=== PATIENT | male | born 1955 | race Caucasian/White ===

== ENCOUNTER 2018-10-19 07:40 | Day surgery (SDC) | payer OTHER, SELFPAY ==
--- NOTE | 2018-10-19 | PATH_ITS ---
[facility] Accession Number: [id number] . 01 Material submitted: . sigmoid colon - SIGMOID POLYP X2 . 02 Diagnosis: Biopsy, Sigmoid Colon Polyps: Tubular adenoma involving both biopsy fragments. [facility]/10/20/2018 . 02 Electronically signed: . Luis Fernando Arenas MD, Pathologist NPI- [id number] . 01 Gross description: . SIGMOID POLYP X2: Received in formalin are 2 fragment(s) of carey, soft tissue measuring 0.1 x 0.1 x 0.1 cm to 0.3 x 0.2 x 0.2 cm which is entirely submitted and submitted entirely in 1 cassette(s) /DMC /DMC . 02 Pathologist provided ICD-10: D12.5 . 02 CPT . 918959 Performed at: 01 [facility] [address] [address], [place], [place] [id number] MD Mike Martin MD Phone: [phone] [facility]formed [facility]: [facility] [address] [place], [place] [id number] MD Kat Quintero MD Phone: [phone]
[2018-10-19 08:07] VITALS: BP 136/87; PULSE 77; RESP 16; TEMP 36.3; O2SAT 5; BMI 25.4
[2018-10-19] MEDS: SODIUM CHLORIDE 0.9% 1,000 ML 200 ML IV (08:10)
--- NOTE | 2018-10-19 09:43 | PM.HP.1 ---
History of Present Illness Date Patient Seen: 10/19/18 Time Patient Seen: 09:43 Chief complaint: [id number] Narrative: 63-year-old man 10 years status post most recent screening colonoscopy without family or personal history of colon/rectal cancer or polyps. Generally feeling well without intestinal complaints Tolerated prep was Patient History Medical History (Updated 10/19/18 @ 09:44 by Percy Cheng MD) Myopia (Acute) Social History household members: spouse Family & Social History Social History: household members spouse Meds Home Medications Medication Instructions Recorded Confirmed Type FLUTICASONE 50MCG LINDSEY INH- 1 spray INTRANASAL BID #0 04/07/10 History (FLUTICASONE PROPIONATE) Loratadine (Claritin) 10 mg PO QDAY #0 04/07/10 History Allergies Allergy/AdvReac Type Severity Reaction Status Date / Time INGREDIENT: NKA - NO KNOWN Allergy Unknown Uncoded 07/06/17 13:00 ALLERGIES Review of Systems Constitutional Constitutional: Denies fever(s) Eyes Eyes: Denies bulging eyes ENT Ears, Nose, Mouth, and Throat: No lip swelling Cardiovascular Cardiovascular: Denies generalize swelling Respiratory Respiratory: Denies stridor Gastrointestinal Gastrointestinal: Denies coffee ground emesis Musculoskeletal Musculoskeletal: Denies loss of height Integumentary/Breasts Skin/Breast: Denies wounds Neurologic Neurologic: Denies abnormal speech and Denies confusion Psychiatric Psychiatric: Denies confusion Endocrine Endocrine: Denies deepening of the voice Hematologic/Lymphatic Hematologic/Lymphatic: Denies lymphadenopathy Allergic/Immunologic Allergic/Immunologic: Denies lip swelling Exam Vital Signs (past 8 hours): - 10/19/18 08:07 Temperature 97.4 F L Pulse Rate 77 Respiratory Rate 16 Blood Pressure 136/87 Pulse Oximetry 5 L Oxygen Delivery Method Room Air Const General: cooperative and healthy appearing Orientation: alert [facility] Head: normal to inspection Nose: nares normal Mouth: oral mucosae normal and lip normal Eyes Eyelids: eyelids normal Conjunctivae: conjunctivae normal Sclera: sclerae normal Neck Neck: supple and other (No thyromegally) Chest Chest: other (LCTAB , regular respiratory effort) Cardio Rhythm: regular rhythm Heart Sounds: S1 normal, S2 normal, no gallops, no murmurs and no rubs GI Other: Abdomen soft nontender nondistended Skin General: no rashes or lesions noted Neuro General: alert and awake Psych Appearance: grossly normal Affect: normal affect Assessment & Plan Assessment & Plan narrative: 63-year-old man here for screening colonoscopy 10 years status post last Risk and benefits of the procedure discussed. Risks including , perforation, hypoxia, missed lesion all discussed All questions answered Patient ready to proceed
--- NOTE | 2018-10-19 09:46 | P.HP_ITS ---
History of Present Illness Date Patient Seen: 10/19/18 Time Patient Seen: 09:43 Chief complaint: [id number] Narrative: 63-year-old man 10 years status post most recent screening colonoscopy without family or personal history of colon/rectal cancer or polyps. Generally feeling well without intestinal complaints Tolerated prep was Patient History Medical History (Updated 10/19/18 @ 09:44 by Percy Cheng MD) Myopia (Acute) Social History household members: spouse Family & Social History Social History: household members spouse Meds Home Medications Medication Instructions Recorded Confirmed Type FLUTICASONE 50MCG LINDSEY INH- 1 spray INTRANASAL BID #0 04/07/10 History (FLUTICASONE PROPIONATE) Loratadine (Claritin) 10 mg PO QDAY #0 04/07/10 History Allergies Allergy/AdvReac Type Severity Reaction Status Date / Time INGREDIENT: NKA - NO KNOWN Allergy Unknown Uncoded 07/06/17 13:00 ALLERGIES Review of Systems Constitutional Constitutional: Denies fever(s) Eyes Eyes: Denies bulging eyes ENT Ears, Nose, Mouth, and Throat: No lip swelling Cardiovascular Cardiovascular: Denies generalize swelling Respiratory Respiratory: Denies stridor Gastrointestinal Gastrointestinal: Denies coffee ground emesis Musculoskeletal Musculoskeletal: Denies loss of height Integumentary/Breasts Skin/Breast: Denies wounds Neurologic Neurologic: Denies abnormal speech and Denies confusion Psychiatric Psychiatric: Denies confusion Endocrine Endocrine: Denies deepening of the voice Hematologic/Lymphatic Hematologic/Lymphatic: Denies lymphadenopathy Allergic/Immunologic Allergic/Immunologic: Denies lip swelling Exam Vital Signs (past 8 hours): - 10/19/18 08:07 Temperature 97.4 F L Pulse Rate 77 Respiratory Rate 16 Blood Pressure 136/87 Pulse Oximetry 5 L Oxygen Delivery Method Room Air Const General: cooperative and healthy appearing Orientation: alert [facility] Head: normal to inspection Nose: nares normal Mouth: oral mucosae normal and lip normal Eyes Eyelids: eyelids normal Conjunctivae: conjunctivae normal Sclera: sclerae normal Neck Neck: supple and other (No thyromegally) Chest Chest: other (LCTAB , regular respiratory effort) Cardio Rhythm: regular rhythm Heart Sounds: S1 normal, S2 normal, no gallops, no murmurs and no rubs GI Other: Abdomen soft nontender nondistended Skin General: no rashes or lesions noted Neuro General: alert and awake Psych Appearance: grossly normal Affect: normal affect Assessment & Plan Assessment & Plan narrative: 63-year-old man here for screening colonoscopy 10 years status post last Risk and benefits of the procedure discussed. Risks including , perforation, hypoxia, missed lesion all discussed All questions answered Patient ready to proceed
--- NOTE | 2018-10-19 10:43 | PM.OP.ENDO ---
Operative Date/Time/Diagnoses Date of procedure: 10/19/18 Time of procedure: 10:43 Pre-op diagnosis: Colorectal cancer screening Post-op diagnosis: same Procedure & Clinicians Study performed: Colonoscopy complete Sigmoid polypectomy with cold biopsy forceps x1 Sigmoid polypectomy with hot snare x1 Same procedure as scheduled: Yes Indications: 63-year-old man presents 10 years status post previous screening colonoscopy Surgeon: Percy Cheng Procedure Notes SCOAP/Timeout: completed Procedure in detail: Patient was taken to the endoscopy suite, time-out was completed. Was sedated over the course of the entire procedure with 7 mg of midazolam and 200 micro g of fentanyl. A digital rectal exam was performed without abnormality. 160 cm colonoscope was advanced through the anus and navigated through the folds of the rectum and colon until the cecum reached. Cecum was identified via prominent ileocecal valve and a notable gross foot. There is no appendiceal orifice as the patient was status post appendectomy. We then slowly withdrew the scope visualizing the mucosa. At the level of the sigmoid colon there was a small pedunculated polyp which was removed via a Jumbo biopsy forcep. Moving several cm distally an additional polyp was small sessile but larger than the capacity of a biopsy forcep was identified -this was removed completely via hot snare. Curiously the polyp was still somewhat adherent to the coagulum where it had been removed and was difficult to dislodged in order to suction. Biopsy forcep was introduced through the working port and used to do dislodged this polyp. It was then suctioned without incident and collected via suction trap. Both specimens were sent to pathology together The remainder of the colon and the rectum was without lesions. Scope was retroflexed within the distal rectum without abnormality Prep was adequate Scope withdrawal time: 32 Sedation minutes: 50 Findings: polyp Specimen(s): other (Sigmoid polyp x2) Complications: none Impression: Sigmoid polyp x2, status post polypectomy Recommendations: Colonscopy in 5 years Plan for aftercare: PACU then home Follow up: as needed Disposition: PACU
[2018-10-19] MEDS: fentaNYL 250 MCG/5 ML INJ IV (10:46)
[2018-10-19 10:48] VITALS: BP 118/73; PULSE 59; RESP 16; TEMP 37.1; O2SAT 95
[2018-10-19] MEDS: MIDAZOLAM 5 MG/5 ML VIAL IV (10:49)
[2018-10-19] MEDS: GLUCAGON,HUMAN RECOMBINANT 1 MG/ML VIAL IV (10:50)
[2018-10-19 10:53] VITALS: BP 122/81; PULSE 67; RESP 14; O2SAT 96
[2018-10-19 11:02] VITALS: BP 125/85; PULSE 64; RESP 14; TEMP 36.7; O2SAT 97
[2018-10-19 11:41] VITALS: BP 107/69; PULSE 67; RESP 15; TEMP 36.1; O2SAT 98
== END 2018-10-19 11:44 | disposition home or self-care (01) ==
PROVIDERS: PCP Family Medicine; Visit Provider Surgery
PROC: 0DJD8ZZ Inspection of Lower Intestinal Tract, Via Natural or Artificial Opening Endoscopic (ICD-10-PCS; CPT 45378; principal; 2018-10-19 08:45)
DX: Z12.11 Encounter for screening for malignant neoplasm of colon (principal); D12.5 Benign neoplasm of sigmoid colon
CPT/HCPCS: 45385; 45380; 99152; 99153; J1610; J2250; J3010

== ENCOUNTER → 2020-04-25 11:17 | Outpatient (CLI) | payer MEDICARE, SELFPAY ==
[2020-04-25] MEDS: COVID-19 VACC #1, MRNA(MOD) 100 MCG/0.5 ML VIAL IM (11:23)
== END ==
PROVIDERS: PCP Family Medicine; Visit Provider Internal Medicine
DX: Z23 Encounter for immunization (principal)
CPT/HCPCS: 0011A; 91301

== ENCOUNTER → 2020-05-23 12:15 | Outpatient (CLI) | payer MEDICARE, SELFPAY ==
[2020-05-23] MEDS: COVID-19 VACC #2, MRNA(MOD) 100 MCG/0.5 ML VIAL IM (12:22)
== END ==
PROVIDERS: Visit Provider Internal Medicine
DX: Z23 Encounter for immunization (principal)
CPT/HCPCS: 0012A; 91301

== ENCOUNTER → 2022-03-09 07:12 | Outpatient (CLI) | payer MEDICARE, SELFPAY ==
--- NOTE | 2022-03-09 | DI.US.S_ITS ---
PROCEDURE: US ABDOMEN LIMITED / soft tissue ultrasound INDICATIONS: RIGHT SHOULDER BLADE LUMP TECHNIQUE: Real-time focused scanning was performed of the abdomen, with image documentation. COMPARISON: None. FINDINGS: At the patient indicated area of clinical concern, the soft tissues of the right upper medial back, an encapsulated avascular oblong lesion with fine linear striations is present. It measures 2.0 x 2.7 x 0.5 centimeters, and is 6 millimeters deep to the skin surface. IMPRESSION: A 2.7 cm mass is present in the soft tissues of the right upper back corresponding to the patient indicated area of concern. 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 Clinical follow-up is recommended and if the finding increases in size or the patient develops symptoms such as pain, a repeat examination or MRI could be obtained. Dictated by: Shawn Garcia M.D. on 03/09/2022 at 9:12 Approved by: Shawn Garcia M.D. on 03/09/2022 at 10:04
== END ==
PROVIDERS: PCP Family Medicine; Referring Provider Family Medicine; Visit Provider Family Medicine
DX: R22.2 Localized swelling, mass and lump, trunk (principal)
CPT/HCPCS: 76705

== ENCOUNTER → 2022-12-07 11:17 | Outpatient (CLI) | payer MEDICARE, SELFPAY ==
--- NOTE | 2022-12-07 11:21 | DI.RAD.S_ITS ---
PROCEDURE: XR FOOT RT MIN 3V INDICATIONS: punture wound of foot w/o foreign body, ongoing redness and pain TECHNIQUE: 3 views of the foot were acquired. COMPARISON: None. FINDINGS: Bones: No fractures or dislocations. No suspicious bony lesions. 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 Mild hallux valgus angulation with medial bunion formation. Soft tissues: No tibiotalar joint effusion. Achilles tendon appears normal. IMPRESSION: No acute osseous abnormality. No foreign bodies are identified. Dictated by: Ino Jimenez M.D. on 12/07/2022 at 13:36 Approved by: Ino Jimenez M.D. on 12/07/2022 at 13:37
== END ==
PROVIDERS: PCP Family Medicine; Referring Provider Registered Nurse; Visit Provider Registered Nurse
DX: S91.331A Puncture wound without foreign body, right foot, initial encounter (principal); X58.XXXA Exposure to other specified factors, initial encounter
CPT/HCPCS: 73630

== ENCOUNTER → 2022-12-15 17:11 | Outpatient (CLI) | payer MEDICARE, SELFPAY ==
--- NOTE | 2022-12-15 17:13 | DI.MRI.S_ITS ---
PROCEDURE: MR FOOT RT WO CON INDICATIONS: ONGOING PAIN AFTER PUNCTURE WOUND TECHNIQUE: Noncontrast sagittal T1 spin echo and T2 fast spin echo with fat saturation, long-axis T1 spin echo and STIR, short-axis T1 spin echo and T2 fast spin echo with fat saturation through the forefoot. COMPARISON: [facility], CR, XR FOOT RT MIN 3V, 12/07/2022, 11:26. FINDINGS: Image quality: Excellent. Bones and joints: Mild focal osseous edema is seen within the 5th metatarsal head with mild T1-weighted signal abnormality. No overlying cortical destruction or definite fracture line is seen. Osseous structures are otherwise normal in signal intensity. Mild degenerative changes are seen at the 1st metatarsophalangeal joint and the metatarsal sesamoid articulations. Hallux sesamoids are normally aligned. Soft tissues: Mild nonspecific soft tissue edema along the lateral and plantar soft tissues adjacent to the 5th metatarsal head. No well-defined fluid collection is seen. Mild adjacent intramuscular edema is noted. No collateral ligament or plantar plate tear is seen. The visualized plantar foot muscles otherwise demonstrate normal signal and bulk. Visualized flexor and extensor tendons appear intact, without tenosynovitis. The distal insertions of the peroneus brevis and longus tendons appear intact. The principal Lisfranc ligament appears intact. Sagittal images demonstrate no evidence for plantar plate tears. IMPRESSION: 1. Mild nonspecific osseous edema within the 5th metatarsal head. Findings may represent an osseous contusion or reactive edema, although mild osteomyelitis is not entirely excluded in the setting of a puncture wound. 2. Mild soft tissue edema surrounding the 5th metatarsal head is nonspecific and may be related to the prior wound, and infection is not excluded. No focal fluid collection or abscess is seen. on 12/17/2022 at 11:15 Approved by: Shawn Tiwari M.D. on 12/17/2022 at 11:15
== END ==
PROVIDERS: PCP Family Medicine; Referring Provider Registered Nurse; Visit Provider Registered Nurse
DX: S91.331A Puncture wound without foreign body, right foot, initial encounter (principal); X58.XXXA Exposure to other specified factors, initial encounter
CPT/HCPCS: 73718

== ENCOUNTER 2023-02-09 13:54 | Emergency (ER) | payer MEDICARE, SELFPAY ==
[2023-02-09] VITALS (10 sets, daily range): BP systolic 140–180; BP diastolic 68–91; PULSE 65–80; RESP 16–24; TEMP 36.7; O2SAT 96–99; BMI 26.2
--- NOTE | 2023-02-09 14:02 | ED_ITS ---
HPI - General Adult General Chief complaint: Neuro Symptoms/Deficit Stated complaint: TIA Time Seen by Provider: 02/09/23 13:57 Source: patient and other (Girlfriend) Mode of arrival: EMS Limitations: no limitations History of Present Illness HPI narrative: Patient is a 67-year-old male. He is relatively healthy. Does not take any medicines on a regular basis. His brought in by EMS for evaluation of concern of stroke/TIA. Approximately 3 hours prior to arrival in the emergency department patient had sexual intercourse. He states that afterwards he felt somewhat lightheaded. No headache. No chest pain. No shortness of breath. It somewhat difficult for him to explain exactly what happened during this time however per EMS reports it appears that his girlfriend states there was about a 30 minute episode where he had difficulty speaking and potentially even slurring some words. There was some report that maybe this happened last evening however the patient does not remember. Currently the patient states he just feels somewhat lightheaded but no other specific complaints. He denies chest pain, palpitations, shortness of breath, headache, vision changes, abdominal pain, nausea or vomiting. Related Data Home Medications Medication Instructions Recorded Confirmed FLUTICASONE 50MCG LINDSEY INH- 1 spray intranasal BID ##0 04/07/10 (FLUTICASONE PROPIONATE) Loratadine (Claritin) 10 mg PO QDAY ##0 04/07/10 Allergies Allergy/AdvReac Type Severity Reaction Status Date / Time INGREDIENT: NKA - NO KNOWN Allergy Unknown Uncoded 07/06/17 13:00 ALLERGIES Review of Systems Review of Systems ROS Unobtainable: All systems reviewed & are unremarkable except as noted in HPI and below Patient History Medical History Myopia Social History household members: spouse Smoking Status: Never smoker Exam Initial Vital Signs Initial Vital Signs: Vital Signs Temperature 98.1 F 02/09/23 14:16 Pulse Rate 75 02/09/23 14:16 Respiratory Rate 18 02/09/23 14:16 Blood Pressure 180/91 H 02/09/23 14:16 Pulse Oximetry 99 02/09/23 14:16 Oxygen Delivery Method Room Air 02/09/23 14:16 Const General: cooperative, comfortable and No ill appearing HENTN Head: normal to inspection and normocephalic Resp Effort & Inspection: normal respiratory effort Auscultation: clear to auscultation bilaterally Cardio Rate: regular rate Rhythm: regular rhythm Skin General: no rashes or lesions noted Neuro General: patient alert, patient awake, patient oriented x3 and moves all extremities Cognition: normal cognition Speech: speech normal Gait: normal gait Sensory Exam: no sensory deficits noted Extrem General: normal to inspection and capillary refill normal Scores NIH Stroke Scale Level of Conciousness: Alert, keenly responsive Ask month/age: Answers both questions correctly. Open/close eyes, close hand: Performs both tasks correctly Best gaze horizontal: Normal Visual pickard: No visual loss Facial palsy: Normal symetrical movement Left arm drift: No drift for full 10 sec Right arm drift: No drift for full 10 sec Left leg drift: No drift for full 5 sec Right leg drift: No drift for full 5 sec Limb ataxia: Absent Sensory on face/arms/legs: Normal, no sensory loss Best language: No aphasia, normal Dysarthria: Normal Extinction or inattention: No abnormality Total NIH Stroke scale score: 0 Course Orders Ordered: ED Orders 02/09/23 13:56 Complete Blood Count AUTO DIFF Stat Comprehensive Metabolic Panel Stat Ethanol (ETOH) Stat Lipase Stat 02/09/23 14:03 CT angio head and neck Stat CT head/brain wo con Stat EKG-12 Lead Stat 02/09/23 15:50 MR head/brain wo con Stat Discontinued Medications Diazepam (Diazepam 10 Mg/2 Ml Syringe) 2 mg IV NOW ONE Stop: 02/09/23 17:03 Last Admin: 02/09/23 17:14 Dose: 2 mg Documented By: YESI Vital Signs Vital signs: Vital Signs - 8 hr 02/09/23 14:16 02/09/23 14:47 02/09/23 14:48 Temperature 98.1 F Pulse Rate 75 71 73 Respiratory Rate 18 23 24 Blood Pressure 180/91 H Pulse Oximetry 99 97 97 Oxygen Delivery Method Room Air 02/09/23 14:48 02/09/23 14:55 02/09/23 14:55 Temperature Pulse Rate 75 Respiratory Rate 24 Blood Pressure 155/80 H 158/82 H Pulse Oximetry 97 Oxygen Delivery Method 02/09/23 15:00 02/09/23 15:00 02/09/23 15:15 Temperature Pulse Rate 71 70 Respiratory Rate 16 22 Blood Pressure 146/80 H Pulse Oximetry 98 97 Oxygen Delivery Method 02/09/23 15:15 02/09/23 15:45 02/09/23 16:15 Temperature Pulse Rate 69 76 Respiratory Rate 18 18 Blood Pressure 145/77 H 140/70 141/68 H Pulse Oximetry 98 98 Oxygen Delivery Method Room Air Room Air 02/09/23 16:45 02/09/23 17:34 Temperature Pulse Rate 80 65 Respiratory Rate 18 Blood Pressure 144/78 H Pulse Oximetry 98 96 Oxygen Delivery Method Medical Decision Making Lab Data Lab results reviewed: Yes I reviewed the patient's lab results. 02/09/23 13:56 02/09/23 13:56 Labs: Lab Results 02/09/23 Range/Units 13:56 WBC 6.6 (4.5-11.0) X10^3/uL RBC 5.30 (4.5-5.9) X10^6/uL Hgb 17.3 (13.5-17.5) g/dL Hct 49.2 (41-53) % MCV 92.7 (80-100) fL MCH 32.6 (26-34) PG MCHC 35.2 (30-36) % RDW 12.9 (11.6-14.8) % Plt Count 282 (150-400) X10^3/uL Neut % (Auto) 65.4 (50-75) % Lymph % (Auto) 21.7 L (25-40) % [place] % (Auto) 8.9 (3-14) % Eos % (Auto) 3.2 (2-4) % Baso % (Auto) 0.8 (0-2) % Neut # (Auto) 4300 (5003-5424) /uL Lymph # (Auto) 1400 (5318-2106) /uL [place] # (Auto) 600 (0-900) /uL Eos # (Auto) 200 (0-450) /uL Baso # (Auto) 100 (0-100) /uL Sodium 140 (137-145) mmol/L Potassium 4.0 (3.4-5.1) mmol/L Chloride 100 (98-107) mmol/L Carbon Dioxide 31 (22-32) mmol/L BUN 17 (9-20) mg/dL Creatinine 1.13 (0.66-1.25) mg/dL Estimated GFR > 60 (>60) mL/min BUN/Creatinine Ratio 15.0 (6-22) Glucose 108 (80-110) mg/dL Calcium 9.9 (8.4-10.2) mg/dL Total Bilirubin 1.1 (0.2-1.3) mg/dL AST 34 (17-59) IU/L ALT 35 (<50) IU/L Alkaline Phosphatase 58 (38-126) U/L Total Protein 8.4 H (6.3-8.2) g/dL Albumin 4.8 (3.5-5.0) g/dL Globulin 3.6 (1.7-4.1) g/dL Albumin/Globulin Ratio 1.3 (1.0-2.8) Lipase 138 (23-300) U/L Ethyl Alcohol < 10 ( - 10) mg/dL Urine Dip Bedside Urine Glucose Negative Bedside Urine Bilirubin - Negative Bedside Urine Ketone - Negative Urine Specific Beyer 1.015 Bedside Urine Occult Blood - Negative Bedside Urine pH 6.0 Bedside Urine Protein - Negative Bedside Urine Urobilinogen - Negative Bedside Urine Nitrite - Negative Bedside Urine Leukocytes - Negative Esterase Point of care testing: Urine Dip Bedside Urine Glucose Negative Bedside Urine Bilirubin - Negative Bedside Urine Ketone - Negative Urine Specific Beyer 1.015 Bedside Urine Occult Blood - Negative Bedside Urine pH 6.0 Bedside Urine Protein - Negative Bedside Urine Urobilinogen - Negative Bedside Urine Nitrite - Negative Bedside Urine Leukocytes - Negative Esterase Imaging Data CT scan - head: Radiologist's Impression: PROCEDURE: CT HEAD/BRAIN WO CON INDICATIONS: TIA TECHNIQUE: Noncontrast 4.5 mm thick angled axial sections acquired from the foramen magnum to the vertex, with coronal and sagittal reformats. For radiation dose reduction, the following was used: automated exposure control, adjustment of mA and/or kV according to patient size. COMPARISON: None. FINDINGS: Image quality: Excellent. CSF spaces: Basal cisterns are patent. No extra-axial fluid collections. The ventricles are symmetric in size and shape. Brain: No intracranial bleeds or masses. There is cerebral volume loss for age, with resultant ventricular and sulcal prominence. There are periventricular and deep white matter chronic small vessel ischemic changes. There is intracranial internal carotid artery atherosclerosis. Skull and face: Calvarium and visualized facial bones appear intact, without suspicious lesions. Sinuses: Visualized sinuses and mastoids are clear. IMPRESSION: No acute intracranial pathology. CTA - brain/neck: Radiologist's Impression: PROCEDURE: CT ANGIO HEAD AND NECK INDICATIONS: TIA TECHNIQUE: After the administration of intravenous contrast, 1 mm thick sections acquired from the aortic arch through the [place] of [place]. 3-dimensional grwinln-zhgclxlzl-kbuddexieu (MIP) and/or volume rendering reformats were acquired of the central intracranial vasculature and neck separately. For radiation dose reduction, the following was used: automated exposure control, adjustment of mA and/or kV according to patient size. COMPARISON: None. FINDINGS: Image quality: Diagnostic. BRAIN: Please refer to separately dictated CT of the head. HEAD CT ANGIOGRAPHY: Anterior circulation: Intracranial internal carotid arteries are normal in size and flow. Mild atherosclerotic vascular calcifications. Mild narrowing of the right petrous ICA. The flow within the paired anterior cerebral arteries is normal and symmetric. The flow within the middle cerebral arteries is normal and symmetric. The anterior communicating artery is seen. No aneurysms are seen. Posterior circulation: Visualized portions of the vertebral arteries demonstrate normal caliber, and join to form a normal appearing basilar artery. Flow within the posterior cerebral arteries is normal and symmetric. No aneurysms are seen. NECK CT ANGIOGRAPHY: Carotid system: The great vessels demonstrate a conventional anatomy as they arise from the aortic arch. The origins of the common carotid arteries appear patent. The common carotid arteries demonstrate normal caliber and courses. The bifurcation regions are both widely patent. The internal carotid arteries demonstrate normal calibers and courses. Posterior circulation: The origins of the vertebral arteries both appear widely patent. The more superior extracranial portions of both vertebral arteries also demonstrate normal courses and calibers. They join to form a normal appearing basilar artery. Soft tissues: Visualized neck soft tissues demonstrate no suspicious abnormalities. Left thyroid lobe nodule measuring 1.1 cm. Heterogeneous right thyroid lobe nodule measuring 1.8 cm. Bones: No suspicious bony lesions. Visualized cervical spine appears normally aligned. Degenerative changes of the cervical spine. IMPRESSION: 1. The arteries of the head and neck are patent without hemodynamically significant stenosis, large vessel occlusion, aneurysm or AVM. 2. Thyroid nodule measuring up to 1.8 cm, recommend nonurgent dedicated thyroid ultrasound. Brain MRI: Radiologist's Impression: PROCEDURE: MR HEAD/BRAIN WO CON INDICATIONS: TIA vs CVA TECHNIQUE: Non-contrast axial T1 spin echo, axial T2 fast spin echo, sagittal and axial FLAIR, coronal T2 fast spin echo, axial gradient echo, axial diffusion and ADC through the brain. COMPARISON: [facility], CT, CT HEAD/BRAIN WO NERISSA, 02/09/2023, 14:26. FINDINGS: Image quality: Excellent. CSF spaces: Ventricles appear symmetric in size and shape. Basal cisterns are patent. No extra-axial fluid collections. Brain: No intracranial bleeds or mass effects. There is cerebral volume loss for age. Brainstem appears normal. Diffusion-weighted images show no acute ischemic insults. No chronic ischemic insults. Normal intravascular flow voids are present. Skull and face: Calvarial bone marrow is normal in signal. Orbits are normal. Sinuses: Sinuses and mastoids are clear. IMPRESSION: 1. No acute intracranial abnormalities. ECG Data Attestation: I personally reviewed and interpreted this ECG as follows: Interpretation: Sinus rhythm Ventricular rate is 65 Normal axis Normal QRS Normal QTC No ST T wave changes MDM Narrative Medical decision making narrative: Patient has had no symptoms since arrival here in the ER. His NIH score is 0. Has had a negative CT scan/CTA of head and neck and an MRI. Was initially hypertensive upon arrival however this has improved. Patient has no history of hypertension. Has had no ectopy on the monitor. Plan will be to discharge patient home with instructions to contact his primary doctor for a follow-up. Discussed further workup to include echocardiogram and Holter monitor. Will have him start taking an aspirin on a daily basis. Will have him start taking blood pressure his blood pressure on a daily basis as well. He was given return precautions. He expressed understanding and agreement with plan. Discharge Plan Departure Patient Disposition: Home Clinical Impression: Brain TIA, Thyroid nodule Instructions: DI for Transient Ischemic Attack Activity Restrictions/Additional Instructions: I do recommend that you take your blood pressure at home on a daily basis like we discussed. Also recommend you start taking a daily aspirin. Contact your primary doctor for follow-up to discuss the indications for a echocardiogram and Holter monitor. Return to the emergency department for new or worsening symptoms. Prescriptions: No Action FLUTICASONE 50MCG LINDSEY INH- (FLUTICASONE PROPIONATE) 1 spray Intranasal BID Qty: 0 Loratadine (Claritin) 10 mg PO QDAY Qty: 0 Referrals: Mayank Carpio MD [Primary Care Provider] - Stand Alone Forms: Patient Portal/API
[2023-02-09 14:16] LABS: Alanine Aminotransferase 35 IU/L (<50); Albumin 4.8 g/dL (3.5-5.0); Albumin Globulin Ratio 1.3 (1.0-2.8); Alkaline Phosphatase 58 U/L (38-126); Aspartate Aminotransferase 34 IU/L (17-59); Bilirubin Total 1.1 mg/dL (0.2-1.3); Blood Urea Nitrogen 17 mg/dL (9-20); Calcium 9.9 mg/dL (8.4-10.2); Carbon Dioxide 31 mmol/L (22-32); Chloride 100 mmol/L (98-107); Estimated Glomerular Filt Rate > 60 mL/min (>60); Ethanol (ETOH) < 10 mg/dL; Globulin 3.6 g/dL (1.7-4.1); Glucose 108 mg/dL (80-110); HEMOLYSIS 25 (0-50); Lipase 138 U/L (23-300); Sodium 140 mmol/L (137-145); Total Protein 8.4 g/dL (6.3-8.2)
[2023-02-09 14:18] LABS: Add Manual Diff / Slide Review NO; Basophils Absolute Auto 100 /uL (0-100); Basophils Percent Auto 0.8 % (0-2); Eosinophils Absolute Auto 200 /uL (0-450); Eosinophils Percent Auto 3.2 % (2-4); Hematocrit 49.2 % (41-53); Hemoglobin 17.3 g/dL (13.5-17.5); Lymphocytes Absolute Auto 1400 /uL (1100-4500); Lymphocytes Percent Auto 21.7 % (25-40); Mean Corpuscular HGB Conc 35.2 % (30-36); Mean Corpuscular Hemoglobin 32.6 PG (26-34); Mean Corpuscular Volume 92.7 fL (80-100); Monocytes Absolute Auto 600 /uL (0-900); Monocytes Percent Auto 8.9 % (3-14); Neutrophils Absolute Auto 4300 /uL (1500-7000); Neutrophils Percent Auto 65.4 % (50-75); Platelet Count 282 X10^3/uL (150-400); Red Cell Distribution Width 12.9 % (11.6-14.8); White Blood Cell Count 6.6 X10^3/uL (4.5-11.0)
--- NOTE | 2023-02-09 15:50 | DI.MRI.S_ITS ---
PROCEDURE: MR HEAD/BRAIN WO CON INDICATIONS: TIA vs CVA TECHNIQUE: Non-contrast axial T1 spin echo, axial T2 fast spin echo, sagittal and axial FLAIR, coronal T2 fast spin echo, axial gradient echo, axial diffusion and ADC through the brain. COMPARISON: [facility], CT, CT HEAD/BRAIN WO CON, 02/09/2023, 14:26. FINDINGS: Image quality: Excellent. CSF spaces: Ventricles appear symmetric in size and shape. Basal cisterns are patent. No extra-axial fluid collections. Brain: No intracranial bleeds or mass effects. There is cerebral volume loss for age. Brainstem appears normal. Diffusion-weighted images show no acute ischemic insults. No chronic ischemic insults. Normal intravascular flow voids are present. Skull and face: Calvarial bone marrow is normal in signal. Orbits are normal. Sinuses: Sinuses and mastoids are clear. IMPRESSION: 1. No acute intracranial abnormalities. Dictated by: Brian Dickson M.D. on 02/09/2023 at 17:40 Approved by: Brian Dickson M.D. on 02/09/2023 at 17:43
[2023-02-09] MEDS: diazePAM 10 MG/2 ML SYRINGE 2 MG IV (17:14)
== END 2023-02-09 18:02 | disposition home or self-care (01) ==
PROVIDERS: Emergency Provider Emergency Medicine; PCP Family Medicine
DX: G45.9 Transient cerebral ischemic attack, unspecified (principal); E04.1 Nontoxic single thyroid nodule; I10 Essential (primary) hypertension; R29.700 NIHSS score 0
CPT/HCPCS: 70450; 70496; 70498; 70551; 80053; 80320; 81003; 83690; 85025; 93005; 93010; 96374; 99284; J3360; Q9967

== ENCOUNTER → 2023-03-02 08:00 | Outpatient (CLI) | payer MEDICARE, SELFPAY ==
--- NOTE | 2023-03-02 | DI.US.S_ITS ---
PROCEDURE: US THYROID INDICATIONS: THYROID NODULE TECHNIQUE: Real-time scanning was performed of the thyroid gland, with image documentation. COMPARISON: None. FINDINGS: Right: Thyroid lobe measures 6.4 x 2.4 x 2.3 cm, and is heterogeneous in echotexture. Left: Thyroid lobe measures 7.6 x 2.3 x 2.1 cm, and is heterogeneous in echotexture. Isthmus: 0.3 cm thick. Nodule number: 1 Location: Left anterior inferior lateral Size: 1.8 x 1.2 x 1.1 cm. Composition: Cystic Echogenicity: Anechoic/isoechoic Shape: wider than tall. Margins: Smooth Echogenic foci: None Total points: 1 ACR TI-RADS category: 1 Nodule number: 2 Location: Left posterior inferior lateral Size: 1.2 x 0.9 x 0.6 cm. Composition: Predominantly solid Echogenicity: Hypoechoic Shape: wider than tall. Margins: Smooth Echogenic foci: None Total points: 4 ACR TI-RADS category: 4 Nodule number: 3 Location: Right posterior inferior Size: 1.9 x 1.7 x 1.5 cm. Composition: Solid Echogenicity: Hypoechoic Shape: wider than tall. Margins: Smooth Echogenic foci: None Total points: 4 ACR TI-RADS category: 4 Nodule number: 4 Location: Left anterior mid Size: 1.5 x 0.8 x 0.7 cm. Composition: Solid Echogenicity: Hypoechoic Shape: wider than tall. Margins: Lobulated Echogenic foci: None Total points: 6 ACR TI-RADS category: 4 Mild plaque at the bilateral common and internal carotid vessels. IMPRESSION: 1. Heterogeneous thyroid with multiple nodules. 2. Nodule 3 in the right posterior inferior lobe is TIRADS 4 and meets criteria for FNA. 3. Nodule 4 in the left anterior mid lobe is TIRADS 4 and meets criteria for FNA. ACR TI-RADS definitions and recommendations: TI-RADS 1 (benign): 0 points. FNA not needed. TI-RADS 2 (not suspicious): 2 points. FNA not needed. TI-RADS 3 (mildly suspicious): 3 points. * FNA if 2.5 cm or larger, follow up if 1.5 cm or larger (at 1, 3, and 5 years). TI-RADS 4 (moderately suspicious): 4-6 points. * FNA if 1.5 cm or larger, follow up if 1 cm or larger (at 1, 2, 3, and 5 years). TI-RADS 5 (highly suspicious): 7 points or more. * FNA if 1 cm or larger, follow up if 0.5 cm or larger (every year for 5 years). Dictated by: Iqra Ledbetter M.D. on 03/02/2023 at 17:42 Approved by: Iqra Ledbetter M.D. on 03/02/2023 at 17:55
--- NOTE | 2023-03-02 | DI.ECHO.S_ITS ---
[facility] +---------+ : : [address] : : : : [id number] : : : : Phone: [phone]+ Echocardiogram Report + + :Name: CHICHO SMITH Study Date: 03/02/2023 Height: 76 in : :[facility] ReadingLocation: Weight: 218 lb : : Gender: Male BSA: 2.3 m2 : :: 1955 Age: 67 yrs BP: 141/86 mmHg: :Reason For Study: TIA : :Ordering Physician: JORGE ALBERTO, : :KARLOS Aguayo Performed By: Pati Clinton : :Referring: KARLOS AZUL : + + Interpretation Summary The left ventricle is normal in size and wall thickness. The left ventricular ejection fraction is normal. The ejection fraction is estimated to be 60-65%. No obvious LV clot. The right ventricle is normal in size and function. Injection of contrast documented no interatrial shunt. There is mild to moderate tricuspid regurgitation. The right ventricular systolic pressure is estimated to be at least 31 mmHg based on an estimated right atrial pressure of 3 mm Hg. The patient was in sinus rhythm with heart rates between 58-65 bpm during the exam. No significant plaque seen in the aortic arch. Procedure: A two-dimensional transthoracic echocardiogram with color flow and Doppler was performed. The study quality was technically adequate. There is no prior echocardiogram noted for this patient. The patient was in sinus rhythm with heart rates between 58-65 bpm during the exam. Left Ventricle: The left ventricle is normal in size and wall thickness. There is no thrombus. The ejection fraction is estimated to be 60-65%. The left ventricular ejection fraction is normal. There are no focal wall motion abnormalities. Diastolic parameters suggest probable normal left ventricular diastolic function and normal filling pressures. Right Ventricle: The right ventricle is normal in size and function. Atria: The left atrial size is normal. Right atrial size is normal. There is no Doppler evidence for an interatrial shunt. Injection of contrast documented no interatrial shunt. Mitral Valve: The mitral valve is normal in structure and function. There is trace mitral regurgitation. Aortic Valve: The aortic valve opens well. The aortic valve is trileaflet. There is no aortic valve stenosis. There is trace aortic regurgitation. Tricuspid Valve: The tricuspid valve is normal. There is mild to moderate tricuspid regurgitation. The right ventricular systolic pressure is estimated to be at least 31 mmHg based on an estimated right atrial pressure of 3 mm Hg. Pulmonic Valve: The pulmonic valve leaflets are thin and pliable; valve motion is normal. There is trace pulmonic regurgitation. Great Vessels: The aortic root is normal size. The dimensions of the ascending aorta are normal. The IVC is of normal diameter and collapses greater than 50% with a sniff. This suggests a low right atrial pressure of 3 mm Hg. Pericardium/ Pleura There is no pericardial effusion. There is no pleural effusion. MMode/2D Measurements & Calculations LVIDd: 5.5 cm LVOT diam: 2.1 cm LVIDs: 3.6 cm Ao root diam: 3.6 cm FS: 35.2 % asc Aorta Diam: 3.5 cm EPSS: 0.35 cm Ao Arch Diam (Prox Trans): 2.6 cm IVSd: 0.67 cm LVPWd: 0.87 cm LV soares. diameter/BSA (cm/m^2): 2.4 LV sys. diameter/BSA (cm/m^2): 1.5 LA A2 area: 22.2 cm2 RA long axis: 5.2 cm LA A4 area: 20.4 cm2 RA area: 16.8 cm2 LA length (vol): 5.8 cm RA vol: 45.7 ml LA vol: 66.2 ml RA : 19.9 ml/m2 LA vol index: 28.8 ml/m2 IVC diam: 1.7 cm RVD1 (basal): 3.7 cm RVD2 (mid): 2.2 cm TAPSE: 2.1 cm Doppler Measurements & Calculations Ao V2 max: 139.6 cm/sec LVOT Max Anuj: 93.8 cm/sec Ao V2 mean: 93.7 cm/sec LV V1 max P.5 mmHg Ao max P.8 mmHg LV V1 VTI: 18.7 cm Ao mean P.9 mmHg NITISH(I,D): 2.7 cm2 Ao V2 VTI: 24.3 cm NITISH(V,D): 2.3 cm2 sev ratio: 0.77 NITISH indexed to BSA (cm^2/m^2): 1.2 MV E max anuj: 60.9 cm/sec TR max anuj: 265.6 cm/sec MV A max anuj: 57.2 cm/sec TR max P.2 mmHg MV E/A: 1.1 PA V2 max: 103.2 cm/sec Med Peak E' Anuj: 9.7 cm/sec PA V2 mean: 75.7 cm/sec E/E' med: 6.3 PA mean P.5 mmHg Lat Peak E' Anuj: 11.5 cm/sec PA pr(Accel): 22.5 mmHg E/E' lat: 5.3 E/e' average: 5.8 MV dec time: 0.27 sec SV(LVOT): 64.5 ml Reading Physician:10:00 AM
== END ==
PROVIDERS: PCP Family Medicine; Referring Provider Family Medicine; Visit Provider Family Medicine
DX: G45.9 Transient cerebral ischemic attack, unspecified (principal); I07.1 Rheumatic tricuspid insufficiency; E04.2 Nontoxic multinodular goiter
CPT/HCPCS: 76536; 93306

== ENCOUNTER → 2023-04-04 07:49 | Outpatient (CLI) | payer OTHER, SELFPAY ==
--- NOTE | 2023-04-04 | PATH_ITS ---
Note [facility] Accession Number: [id number] TESTS RESULT FLAG UNITS REF RANGE LAB Clinician Provided Cytology Information No. of containers..01 Other (Miscellaneous) No. of containers..02 Previously Prepared Cytology Slide Source: LEFT MID THYROID #4 NODULE (B) DIAGNOSIS: 01 LEFT MID THYROID #4 NODULE (B), FINE NEEDLE ASPIRATION. INCONCLUSIVE. BETHESDA CATEGORY III. ATYPIA OF UNDETERMINED SIGNIFICANCE (AUS), SEE COMMENT. COMMENT: EXAMINATION OF THE SMEARS REVEALS A HYPOCELLULAR TO MILDLY CELLULAR ASPIRATE, COMPOSED OF COLLOID, MACROPHAGES AND BENIGN FOLLICULAR GROUPS WITH FOCAL HURTHLE CELL CHANGES. IN ADDITION, THERE ARE RARE GROUPS WHERE MILD NUCLEAR ENLARGEMENT, OVERLAPPING AND NUCLEAR MEMBRANE IRREGULARITIES ARE NOTED. INTRANUCLEAR PSEUDOINCLUSIONS ARE NOT SEEN. THE RISK OF MALIGNANCY IN THE BETHESDA CATEGORY III IS 5-15%. FOLLOW-UP IS RECOMMENDED. ADDITIONAL MOLECULAR TESTING WILL BE PERFORMED ON THE SUBMITTED RNA VIAL FOR FURTHER EVALUATION. 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 Signed out by: Jazzy Mae MD, Pathologist NPI- [id number] Performed by: Jazzy Dominguez, Rn Iv Therapy ([facility]) Gross description: 01 30 CC, PINK, CLEAR RECIEVED: IN CYTOLYT WITH 6 ALCOHOL FIXED AND 6 QUICK STAINED SLIDES ALSO 1 RNA VIAL WILL ON 10-25-2024.VO /VDU 04/05/[address] [place] [address] FLAG LEGEND: L-Low Normal,H-High Normal,LL-Alert Low,HH-Alert High <-Panic Low,>-Panic High,A-Abnormal,AA-Critical Abnormal Performed at: 01 =Z [facility] [address], [place] [address] Mike Martin MD, Specimen Comment: [id number] Performed at: 01 [facility] [address] [place] [address] [address], [place], [place] [id number] MD Mike Martin MD Phone: [phone]
--- NOTE | 2023-04-04 | PATH_ITS ---
Note [facility] Accession Number: [id number] TESTS RESULT FLAG UNITS REF RANGE LAB Clinician Provided Cytology Information No. of containers..01 Other (Miscellaneous) No. of containers..02 Previously Prepared Cytology Slide Source: RIGHT THYROID INFERIOR #3 NODULE (A) DIAGNOSIS: 01 RIGHT THYROID INFERIOR #3 NODULE (A), FINE NEEDLE ASPIRATION. NEGATIVE FOR MALIGNANT CELLS. ADEQUATE FOR EVALUATION. FOLLICULAR GROUPS ARE PRESENT. BENIGN FOLLICULAR (GOITEROUS) NODULE ([place] CATEGORY II), SEE COMMENT. COMMENT: MICROSCOPIC EXAMINATION REVEALS A MILDLY CELLULAR ASPIRATE, COMPOSED OF COLLOID, FOLLICULAR GROUPS WITHOUT SIGNIFICANT CYTOLOGIC OR ARCHITECTURAL ATYPIA, AND BACKGROUND MACROPHAGES. THESE FINDINGS SUPPORT A BENIGN FOLLICULAR (GOITEROUS) NODULE. CORRELATION WITH CLINICAL AND RADIOGRAPHIC FINDINGS IS RECOMMENDED. ACCORDING TO THE [place] REPORTING SYSTEM FOR THYROID CYTOPATHOLOGY, THE RISK OF MALIGNANCY IN THE CATEGORY BENIGN-CATEGORY II IS 0-3%; THEREFORE RECOMMEND CONTINUED ULTRASOUND SURVEILLANCE WITH REPEAT FNA IF THE NODULE SIGNIFICANTLY INCREASES IN SIZE. 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 Signed out by: Jazzy Mae MD, Pathologist NPI- [id number] Performed by: Jazzy Rodriguez, [employer] ([facility]) Gross description: 30 CC, RED, HAZY RECIEVED: IN CYTOLYT WITH 6 ALCOHOL FIXED AND 6 QUICK STAINED SLIDES ALSO 1 RNA VIAL WILL ON 10-25-2024.VO /VDU 04/05/2023 0[facility] FLAG LEGEND: L-Low Normal,H-High Normal,LL-Alert Low,HH-Alert High <-Panic Low,>-Panic High,A-Abnormal,AA-Critical Abnormal Performed at: 01 =Z [facility] [address] [place] [address] [address], [place] [address] Mike Martin MD, Specimen Comment: [id number] Performed at: 01 [facility] [address] [place] [address] [address], [place], [place] [id number] MD Mike Martin MD Phone: [phone]
--- NOTE | 2023-04-04 07:50 | DI.US.S_ITS ---
PROCEDURE: US FINE NEEDLE ASPIRATION INDICATIONS: RIGHT INFERIOR (#3) AND LEFT MID (#4) NODULES TECHNIQUE: The indications, alternatives, benefits, risks, and complications of the procedure were explained to the patient. Written informed consent was obtained and placed in the chart. The area of interest was examined sonographically and a site was chosen for ultrasound guided percutaneous sampling. The skin was prepared and draped in the usual fashion, and anesthetized with 1% lidocaine infiltrated from the skin down to the lesion. Multiple passes were then performed, with contents emptied into an appropriate pathology specimen container. A bandage was applied to the area of access at completion of the study. COMPARISON: [facility], , US THYROID, 03/02/2023, 9:57. FINDINGS: Location(s) of lesion(s) sampled: Right inferior thyroid (nodule #3 on ultrasound from 03/02/2023) and left anterior mid thyroid (nodule #4 on the prior ultrasound) [place]: 22 and 25 gauge hypodermic needles. Number of passes: 6 passes for each nodule Medications: 1% lidocaine for local anaesthesia. Complications: None. IMPRESSION: Successful ultrasound-guided bilateral thyroid nodule fine needle aspiration, with cytology results pending. Approved by: Shawn Tiwari M.D. on 04/04/2023 at 11:14
== END ==
LOC: US 07:49
PROVIDERS: PCP Family Medicine; Referring Provider Family Medicine; Visit Provider Family Medicine
DX: E04.2 Nontoxic multinodular goiter (principal)
CPT/HCPCS: 10005